=== PATIENT | female | born 1980 | race Caucasian/White ===

== ENCOUNTER 2016-11-14 22:31 | Emergency (ER) | payer OTHER ==
--- NOTE | ~2016-11-14 | CT4 ---
[facility] A Service of [facility] RADIOLOGY TEXT RESULTS PATIENT: TORI WIGGINS LOCATION: SED : 82 UNIT #: [id number] AGE: [address]: Hernan Leroy MD SEX: F ORDER DR: [id number] [place] [id number] E MR#: [id number] Acc #: [id number] NAME: TORI WIGGINS : 1980 SEX: F STUDY DATE/TIME: 11/14/2016 22:50 UNIT: SED ROOM: STUDY DESCRIPTION: CT Abd and Pelv Wo Cont Attending Physician: Hernan Leroy M.D. Ordering Physician: Hernan Leroy M.D. Primary Care Physician: Therese Cuevas MEDICAL IMAGING REPORT This report is preliminary unless electronic signature is present. EXAM CT abdomen and pelvis, noncontrast, 11/14/2016 HISTORY 36-year-old female in the ED complaining of new-onset right flank pain today. TECHNIQUE CT examination of the abdomen and pelvis without oral or IV contrast, using kidney stone protocol. This CT exam was performed with one or more of the following radiation dose reduction techniques: Automatic exposure control, adjustment of mA and/or kV according to patient size, and iterative reconstruction. COMPARISON CT stone study 11/04/2015. FINDINGS ABDOMEN FINDINGS: Both kidneys, both ureters and the urinary bladder are normal in noncontrast CT appearance. No visible nephrolithiasis or evidence of urinary obstruction. Liver, pancreas and spleen are within normal limits without contrast. Nondistended gallbladder. No bile duct dilatation. Small bowel and colon are normal in caliber and appearance, as imaged. The appendix is surgically absent by history. Normal-caliber abdominal aorta. Tiny umbilical hernia contains abdominal fat. PELVIS FINDINGS: Uterus, ovaries, bladder and rectum are within normal limits. No inguinal hernia. Limited lung base images show no active disease in the lower chest. [facility] A Service of [facility] RADIOLOGY TEXT RESULTS PATIENT: TORI WIGGINS LOCATION: SED : [birth year] UNIT #: [id number] AGE: [address]: Hernan Leroy MD SEX: F ORDER DR: IMPRESSION 1. No acute abnormality within the abdomen or pelvis. No visible nephrolithiasis or evidence of urinary obstruction. 2. Surgically absent appendix. Dictated by... Janes Blanc M.D. THIS IS AN ELECTRONICALLY VERIFIED REPORT Janes Blanc M.D. at 11/15/2016 5:59 AM PORTIA/pietro TD: 11/15/2016 00:40 JOB #: [id number] MEDICAL IMAGING REPORT Page 1 of 1
[2016-11-14 22:25] LABS: URINE SOURCE CLEAN CATCH
[2016-11-14 22:28] LABS: URINE APPEARANCE HAZY; URINE BLOOD 1+ (NEG); URINE COLOR YELLOW; URINE GLUCOSE NEG (NORM); URINE KETONE TRACE (NEG); URINE LEUKOCYTE ESTERASE NEG (NEG); URINE NITRATE NEG (NEG); URINE PH 6.5 (5-8); URINE PROTEIN TRACE (NEG)
[2016-11-14 22:30] LABS: MICRO INDICATED? YES; URINE BILIRUBIN NEG (NEG)
[2016-11-14 22:31] LABS: CULTURE INDICATED? NO; URINE BACTERIA NEG (NEG); URINE CRYSTALS CALCIUM OXALATE /[HPF]; URINE MUCUS PRESENT; URINE SQUAMOUS EPITHELIAL CELL OCCAS /[HPF]; URINE TRANSITIONAL EPI CELLS FEW /[HPF]; URINE WBC 0-2 /[HPF] (0-5)
[~2016-11-14 22:31] MED LIST: ADDERALL PO; ALPRAZOLAM PO; ALPRAZOLAM1 MG PO; AMOXICILLIN; DEPO-PROVER150 MG/ML INJ; DOXYCYCLINE; EFFEXOR XR PO; FISH OIL 1,2001 EAC1 PO; HYDROCODONE-APA1 T42; LO LOESTRIN FE; LO LOESTRIN FE1 EACH PO; LORTAB 10-5001 EACH PO; LORTAB 10/500 T1 TAB PO; LORTAB 5/500 TA1 TA1 PO; MIRALAX17 GM PO; MORGIDOX100 MG PO; PERCOCET 5-3251 TAB; PERCOCET 5-3251 TAB PO; PHENERGAN PO; PHENERGAN SUPP25 M1 PR; PHENERGAN25 MG PO; PROZAC PO; TORADOL10 MG PO; TYLOX 5/500 CAP1 CAP PO; VIBRAMYCIN100 M1 PO; VICODIN 5/500 T1 TAB PO; XANAX1 MG PO; YASMIN 28 TABLE1 TAB PO; ZOFRAN ODT4 MG PO
[2016-11-14 22:34] LABS: BASOPHIL# 0.2 X10e3 (0-0.3); BASOPHIL% 2.2 % (0-2.5); EOSINOPHIL# 0.4 X10e3 (0-0.7); EOSINOPHIL% 4.6 % (0.0-7.0); HEMATOCRIT 37.8 % (35.0-45.0); HEMOGLOBIN 12.9 gm/dL (12.0-16.0); LYMPHOCYTE# 2.4 X10e3 (1.0-3.5); LYMPHOCYTE% 31.1 % (17.0-45.0); MEAN CELL VOLUME 94.4 FL (83-96); MEAN CORPUSCULAR HEMOGLOBIN 32.2 PG (28-34); MEAN CORPUSCULAR HGB CONC 34.1 g/dL (30-36); MEAN PLATELET VOLUME 8.1 FL (6.5-11.5); MONOCYTE# 0.9 X10e3 (0-1.0); MONOCYTE% 11.5 % (3.0-12.0); NEUTROPHIL# 3.9 X10e3 (1.5-7.1); NEUTROPHIL% 50.6 % (40-75); PLATELET COUNT 287 X10e3 (140-420); RED CELL DISTRIBUTION WIDTH 13.7 % (11.0-15.5); WHITE BLOOD COUNT 7.6 X10e3 (4.0-10.5)
[2016-11-14 22:35] LABS: DIFF IND NO
[2016-11-14 22:50] LABS: ALBUMIN SERUM 4.1 g/dL (3.5-5.0); ALKALINE PHOSPHATASE 46 U/L (32-92); ALT (SGPT) 11 U/L (10-40); AST (SGOT) 16 U/L (10-42); BILIRUBIN,TOTAL 0.5 mg/dL (0.2-2.0); BLOOD UREA NITROGEN 15 mg/dL (9-23); CARBON DIOXIDE 28 mmol/L (22-31); CHLORIDE 102 mmol/L (100-111); GLUCOSE FASTING 92 mg/dL (70-110); POTASSIUM 3.2 mmol/L (3.5-5.1); SODIUM 136 mmol/L (135-145)
[2016-11-14 22:53] LABS: BILIRUBIN, DIRECT <0.1 mg/dL (0.0-0.2); BILIRUBIN,INDIRECT 0.4 mg/dL (0.0-0.9)
== END 2016-11-15 01:19 | disposition home or self-care (01) ==
LOC: SED 22:31
PROVIDERS: Emergency Medicine
DX: R10.9 Unspecified abdominal pain (principal); R11.2 Nausea with vomiting, unspecified; E87.6 Hypokalemia; F41.8 Other specified anxiety disorders; F17.200 Nicotine dependence, unspecified, uncomplicated
CPT/HCPCS: 36415; 74176; 80048; 80076; 81003; 84703; 85025; 87086; 96374; 96375; 96376; 99284; J1885; J2060; J2550